=== PATIENT | female | born 1955 | race African-American/Black ===

== ENCOUNTER 2016-12-15 16:53 | Inpatient (IN) | payer OTHER ==
[~2016-12-15] VITALS: Ht 165.1 cm; Wt 113.1 kg
--- NOTE | ~2016-12-15 | HC ---
[facility] [place] [address] CONSULTATION Name: MONICA MIRZA Room #: 448-P [facility] IN M.R.#: [id number] Admission: 12/16/16 Attend Phys: Brian Wilkinson DO Discharge: 12/17/16 Date of : 53 Report #: [id number] THIS REPORT FOR: //name// CC: FAM unknown Brian Wilkinson CHIEF COMPLAINT: This 61-year-old chronic dialysis patient was admitted with shortness of breath. HISTORY OF PRESENT ILLNESS: The patient came to the Emergency Room yesterday with shortness of breath, had some high blood pressure, some numbness in her left arm, was evaluated and admitted with hypertensive urgency and hypoxemia. PAST MEDICAL HISTORY: Longstanding diabetes with triopathy. She is blind. She has had retinopathy and multiple laser surgeries. She has had severe peripheral neuropathy with a Charcot of right foot and right ankle and one time have severe ulcer in that area which is better. She has end-stage renal disease on dialysis for the last 3 years. HOME MEDICATIONS: Reported to be aspirin 81 mg daily, vitamins, lisinopril 10 mg daily ____ with meals t.i.d., insulin, clonidine p.r.n. PAST MEDICAL HISTORY: Remarkable for the diabetes with triopathy, Charcot of right foot, the blindness, the history of stroke without major residual and peripheral arterial disease. REVIEW OF SYSTEMS: GENERAL: She has been feeling okay. EYES: She is blind. ENT: Hearing okay. Swallowing okay. Denies mouth ulcers. ENDOCRINE: Positive for diabetes. Negative for thyroid disease. RESPIRATORY: She was short of breath, but that is better. No pleuritic pain, cough or hemoptysis. CARDIAC: Denying angina, chest pain or palpitations. GASTROINTESTINAL: Denying nausea, vomiting, diarrhea or bloody stools. GENITOURINARY: Denying dysuria. NEUROLOGIC: She is blind and she has got numbness in her feet, previous stroke without residual. PSYCHIATRIC: Denies anxiety or depression. PHYSICAL EXAMINATION: GENERAL: This is a chronically ill-appearing patient. SKIN: She has got areas of hyperpigmentation in a mottled pattern over her trunk. SKELETAL: Rather obese. HEENT: Extraocular movements tested. She is blind. Hearing intact. Mucous membranes moist. [address] [address] CONSULTATION Name: MONICA MIRZA Room #: 448-[facility] IN M.R.#: [id number] Admission: 12/16/16 Attend Phys: Brian Wilkinson DO Discharge: 12/17/16 Date of : 53 Report #: [id number] NECK: Supple, no carotid bruits. CHEST: Shows diminished breath sounds, slightly coarse with occasional rhonchi. HEART: Regular. ABDOMEN: Soft and nontender. Left arm fistula intact with good thrill and bruit. EXTREMITIES: Show deformed Charcot of right foot. LABORATORY DATA: Sodium 142, potassium 4.4, chloride 98, bicarbonate 33, creatinine 8.7, BUN 61, Hemoglobin 10.1, white count 11.5, platelets 230. Chest x-ray, personally reviewed shows a clear chest x-ray. Ultrasound of the lower extremities shows no DVT. ASSESSMENT: 1. End-stage renal disease, due for dialysis today. We will go ahead and perform. 2. Accelerated hypertension, has come under control rather easily with oral medications. 3. Diabetes mellitus with triopathy including blindness and Charcot of right foot. <ELECTRONICALLY SIGNED> By: Larry Herrera MD 12/18/16 1122 [id number] Larry Herrera MD /nt
--- NOTE | ~2016-12-15 | EKG ---
[place] [address] [facility] [place] [address] ELECTROCARDIOGRAM REPORT Name: MONICA MIRZA Room #: 448-P ADM IN M.R.#: [id number] Admission: 12/16/16 Attend Phys: Brian Wilkinson DO Discharge: Date of : 53 Report #: [id number] THIS REPORT FOR: //name// [facility] ED Test Date: 2016-12-15 Test Time: 17:48:22 Pat Name: MONICA MIRZA Department: Room: [facility] Gender: F Supervisor [employer] Machine: CHIARA : 1955 Requested By: Maria Fernanda Jennings Order Number: [id number] MD: Rashaad Moscoso Measurements Intervals [place] Rate: 102 P: 66 OR: 170 QRS: 22 QRSD: 109 T: 67 QT: 384 QTc: 501 Interpretive Statements Sinus tachycardia Poor R wave progression Baseline wander in lead(s) V1 Compared to ECG 08/29/2015 06:12:36 No significant change was found Electronically Signed On 12-17-2016 12:51:45 CDT by Rashaad Moscoso [email or web address] <ELECTRONICALLY SIGNED> By: Rashaad Moscoso MD, [facility] 12/17/16 1251 1748 1748 Rashaad Moscoso MD, [facility] /EPI
[~2016-12-15 16:53] MED LIST: AMLODIPINE BESY10 MG PO; ANTACID325 MG PO; ANTACID650 MG PO; ASPIR 8181 MG PO; CARVEDILOL12.5 MG PO; CARVEDILOL3.125 MG PO; CATAPRES0.2 MG PO; CLINDAMYCIN HC150 MG PO; CLONIDINE0.1 PO; COLACE100 MG PO; CORICIDIN HBP1 EACH PO; DOXYCYCLINE 10100 MG PO; EPOGEN10000 UNIT IJ; FISH OIL + D31 EACH PO; FLONASE 0.05%50 MCG NASAL; HUMULIN 70100 UNIT/2; HYDROCODONE-AP1 EAC6 PO; KEFLEX500 MG PO; LASIX 80 MG TAB80 M1 PO; LIPITOR10 MG PO; LISINOPRIL10 MG PO; LISINOPRIL20 MG PO; LOPERAMIDE 2 MG2 M1 PO; LOPRESSOR25 PO; MULTIVITAMINS PO; NEPHRO-VITE RX1 TA1 PO; NORCO 5-325 TA1 EACH PO; RENAGEL400 MG; RENAGEL400 MG PO; RENVELA800 MG PO; TYLENOL325 MG PO; UNASYN 3 GM VIAL3 G1 IV; UNICOMPLEX M TA1 TA1 PO; ZOFRAN ODT4 MG PO; ZPAK PO
[2016-12-15 16:54] VITALS: BP 173/71
[2016-12-15 19:55] LABS: ABSOLUTE NEUTROPHILS 8.3 thou/uL (1.4-8.2); BASOPHILS 0.8 % (0.0-2.0); EOSINOPHILS 1.4 % (0.0-3.0); HEMOGLOBIN 10.1 gm/dL (12.0-15.0); LYMPHOCYTES 19.3 % (24.0-44.0); MCH 30.7 pg (26.0-34.0); MCHC 31.7 g/dL (28.0-37.0); MCV 96.7 fL (80.0-100.0); MONOCYTES 6.5 % (1.0-8.0); PLATELET COUNT 230 thou/uL (150-400); RBC 3.31 mil/uL (4.20-5.00); RDW 16.3 % (10.5-14.5); WBC 11.5 thou/uL (4.0-11.0)
[2016-12-15 19:56] LABS: MANUAL DIFF NO
[2016-12-15 20:04] LABS: CALCIUM 9.2 mg/dL (8.5-10.1); CREATININE 8.7 mg/dL (0.6-1.0); POTASSIUM 4.4 mmol/L (3.5-5.1)
[2016-12-15 20:12] LABS: TOTAL BILIRUBIN 0.3 mg/dL (<0.1-1.0); TOTAL PROTEIN 7.4 g/dL (6.4-8.2); TROPONIN-I 0.18 ng/mL (<0.04-0.07)
[2016-12-15 21:45] VITALS: BP 147/59
[2016-12-15 22:06] VITALS: BP 158/64
[2016-12-16 04:21] VITALS: BP 135/64
[2016-12-16 10:30] VITALS: BP 159/76
[2016-12-16 12:48] LABS: HEMATOCRIT 31.5 % (37.0-47.0); HEMOGLOBIN 10.3 gm/dL (12.0-15.0); MCH 31.4 pg (26.0-34.0); MCHC 32.6 g/dL (28.0-37.0); MCV 96.2 fL (80.0-100.0); RBC 3.28 mil/uL (4.20-5.00); RDW 16.3 % (10.5-14.5); WBC 12.1 thou/uL (4.0-11.0)
[2016-12-16 16:00] VITALS: BP 141/67
[2016-12-16 20:00] VITALS: BP 137/46
[2016-12-17 05:30] VITALS: BP 131/43
[2016-12-17 08:49] VITALS: BP 138/57
[2016-12-17 13:58] VITALS: BP 138/57
== END 2016-12-17 14:43 | disposition home or self-care (01) | DRG 291 ==
LOC: ER 16:53 → 4S 20:31 → EROBS 20:31 → 4S 20:31 → EROBS 22:03 → 4S 22:03 → EROBS 12-16 13:00 → 4S 12-16 13:00
PROVIDERS: Internal Medicine; Physician Assistant
DX: I13.2 Hypertensive heart and chronic kidney disease with heart failure and with stage 5 chronic kidney disease, or end stage renal disease (principal); I50.33 Acute on chronic diastolic (congestive) heart failure; N18.6 End stage renal disease; J96.01 Acute respiratory failure with hypoxia; I16.0 Hypertensive urgency; Z96.1 Presence of intraocular lens; H54.8 Legal blindness, as defined in USA; K21.9 Gastro-esophageal reflux disease without esophagitis; E11.22 Type 2 diabetes mellitus with diabetic chronic kidney disease; E11.319 Type 2 diabetes mellitus with unspecified diabetic retinopathy without macular edema; E11.610 Type 2 diabetes mellitus with diabetic neuropathic arthropathy; Z79.4 Long term (current) use of insulin; Z79.899 Other long term (current) drug therapy; Z98.42 Cataract extraction status, left eye; Z98.41 Cataract extraction status, right eye; Z99.2 Dependence on renal dialysis; Z86.73 Personal history of transient ischemic attack (TIA), and cerebral infarction without residual deficits; Z88.8 Allergy status to other drugs, medicaments and biological substances
CPT/HCPCS: 10100; 32100